=== PATIENT | male | born 1960 | race Caucasian/White ===

== ENCOUNTER → 2023-04-02 06:25 | Day surgery (SDC) | payer OTHER, SELFPAY | LOC: GI 06:25 | PROVIDERS: ATTENDING PHYSICIAN Specialist | DX: K31.A0 Gastric intestinal metaplasia, unspecified (principal); K63.5 Polyp of colon; K31.89 Other diseases of stomach and duodenum; K29.50 Unspecified chronic gastritis without bleeding; Z98.0 Intestinal bypass and anastomosis status; Z85.038 Personal history of other malignant neoplasm of large intestine | CPT/HCPCS: 45385; 43239; 88305; 88341; 88342 ==